=== PATIENT | female | born 1980 | race Caucasian/White ===

== ENCOUNTER 2022-02-08 15:05 | Emergency (ER) | payer MEDICAID ==
[~2022-02-08] VITALS: Ht 157.5 cm; Wt 74.6 kg
[2022-02-08 15:27] VITALS: BP 154/110
--- NOTE | 2022-02-08 15:36 | ED Back Pain ---
General Chief Complaint: Back Problems Stated Complaint: BACK PAIN History of Present Illness Date Seen by Provider: Feb 08, 2022 Time Seen by Provider: 15:35 Initial Comments 41-year-old female with PMH of chronic back issues, is here with complaints of sudden onset of pain in the lower left side of her back after she was moving boxes of [place] ornaments today and pulled a muscle. Pain is radiating down her left leg. Denies saddle anesthesia, nausea and vomiting, fall, trauma, neurological deficits, bladder or bowel dysfunction. Allergies and Home Medications Allergies Coded Allergies: morphine (Verified Allergy, Unknown, 02/08/22) terbutaline (Verified Allergy, Unknown, 02/08/22) Patient Home Medication List Home Medication List Reviewed: Yes Review of Systems Constitutional: no symptoms reported EENTM: no symptoms reported Respiratory: no symptoms reported Cardiovascular: no symptoms reported Gastrointestinal: no symptoms reported Genitourinary: no symptoms reported Musculoskeletal: back pain Skin: no symptoms reported Psychiatric/Neurological: No Symptoms Reported Physical Exam Vital Signs Vital Signs - First Documented 02/08/22 15:27 Temp 36.2 Pulse 92 Resp 18 B/P (MAP) 154/110 (125) Pulse Ox 100 O2 Delivery Room Air Capillary Refill : Height, Weight, BMI Height: '" Weight: lbs. oz. kg; BMI Method: General Appearance: Mild Distress HEENT: PERRL/EOMI Neck: Full Range of Motion, Normal Inspection, Non Tender, Supple Back: Normal Inspection, Muscle Spasm (on left side at level of L5- s1, straight leg test positive on left. No saddle anesthesia. Gait normal) Extremity: Normal Inspection, Normal Range of Motion Neurologic/Psychiatric: Alert, Oriented x3, No Motor/Sensory Deficits, Normal Mood/Affect, divorce attorney II-XII Norm as Tested Skin: Normal Color Progress/Results/Core Measures Results/Orders My Orders Orders - TATIANNA CARSON MD Thoracolumbar Spine Min 2 View (02/08/22 17:03) Ketorolac Injection (Toradol Injection) (02/08/22 17:15) Dexamethasone Injection (Decadron Inje (02/08/22 17:15) Cyclobenzaprine Tablet (Flexeril Tablet) (02/08/22 17:03) Medications Given in ED Current Medications Medications Dose Ordered Sig/Rianna Route Start Time Stop Time Status Last Admin Dose Admin Dexamethasone Sodium Phosphate 10 mg ONCE ONCE IM 02/08/22 17:15 02/08/22 17:16 DC 02/08/22 17:32 10 MG Ketorolac Tromethamine 30 mg ONCE ONCE IM 02/08/22 17:15 02/08/22 17:16 DC 02/08/22 17:32 30 MG Vital Signs/I&O 02/08/22 15:27 Temp 36.2 Pulse 92 Resp 18 B/P (MAP) 154/110 (125) Pulse Ox 100 O2 Delivery Room Air Progress Progress Note : Progress Note 1. PARASPINAL MUSCLE SPASM ( LUMBAR): - XR THORACOLUMBAR SPINE: L5-S1 degeneration - Toradol im/ Dexa 10mg im/ Flexeril oral STAT in ER. Flexeril sent home with pt since she is driving. - Prescription for Flexeril, advised not to drive after taking this medication - Advised Naproxen capsule 440mg Q12H, with Extra strength Tylenol Q4H - Gentle stretching advised/ heat compresses - Over the counter lidoderm patches advised - Follow up with PCP in 3 to 7 days - No red flags for cord compression -Flexeril prescription 3 times a day for 5 days. [address] not to drive while taking this medication -No heavy lifting -The patient was seen in the ED, and treated appropriately to presentation at a specific point in time. Patient is informed that there is a possibility that disease and illness can evolve and change in acuity rapidly or slowly after patient is discharged from the ER. Precautionary advice given to the patient for immediate return to ER if symptoms worsen or do not resolve, and to seek emergency care sooner rather than later. Pt also advised on the importance of PCP follow up and compliance with management and follow up plan with PCP and/or specialist, as this is part of the management plan. Pt verbally expressed understanding. Diagnostic Imaging Diagonstic Imaging: Xray Plain Films/CT/US/NM/MRI: other Comments [facility]. [place], [place] NAME: WINIFRED NUNN [facility] REC#: [id number] PT STATUS: REG ER : 1980 PHYSICIAN: TATIANNA CARSON MD ADMIT DATE: 02/08/22/ER FS Draft Date of Exam:02/08/22 THORACOLUMBAR SPINE MIN 2 VIEW INDICATION: Chronic back pain COMPARISON: None available. TECHNIQUE: Two radiographs of the lower thoracic and lumbar spine dated 02/08/2022. FINDINGS: No significant anterolisthesis or retrolisthesis. Mild accentuation of the kyphosis within the visualized thoracic spine. Minimal anterior wedging at the thoracolumbar junction, appearing chronic in nature. No additional vertebral body height loss. Mild disc space height loss at L5/S1. No severe disc space height loss. Minimal facet joint degenerative changes. Surgical clips in right upper abdomen. The sacroiliac joints are intact. No acute fracture or dislocation. No destructive osseous process. IMPRESSION: No acute osseous abnormality with low-grade degenerative changes, particularly at L5/S1. Accentuation of the thoracic kyphosis within the visualized thoracic spine. Dictated on workstation # [id number] Dict: 02/08/22 1721 Trans: 02/08/22 1726 [facility] [id number] Interpreted by: ARGELIA LAWRENCE MD Electronically signed by: Departure Impression Primary Impression: Lumbar paraspinal muscle spasm Disposition: 01 HOME, SELF-CARE Condition: Stable Departure-Patient Inst. Referrals: EZEKIEL MARTE APRN (PCP/Family) Primary Care Physician Patient Instructions: Muscle Spasms (DC), Using Heat for Pain, Muscle Spasm ED, MANAGING YOUR CHRONIC PAIN Add. Discharge Instructions: - Advised Naproxen capsule 440mg Q12H, with Extra strength Tylenol Q4H - Gentle stretching advised/ heat compresses - Over the counter lidoderm patches advised - Follow up with PCP in 3 to 7 days -Flexeril prescription 3 times a day for [address]. [address] to drive while taking this medication -No heavy lifting All discharge instructions reviewed with patient and/or family. Voiced understanding. Scripts Cyclobenzaprine HCl (Cyclobenzaprine HCl) 5 Mg Tablet 5 MG PO TID for 5 Days, #15 TAB Prov: TATIANNA CARSON MD 02/08/22 TATIANNA CARSON MD Feb 08, 2022 15:36
[2022-02-08] MEDS ORDERED: CYCLOBENZAPRINE 10 MG (FLEXERIL) TAB PO STA (17:03)
[2022-02-08] MEDS ORDERED: KETOROLAC 30 MG/ML VIAL IM ONE (17:15)
--- NOTE | 2022-02-08 17:26 | Diagnostic Imaging Report ---
INDICATION: Chronic back pain COMPARISON: None available. TECHNIQUE: Two radiographs of the lower thoracic and lumbar spine dated 02/08/2022. FINDINGS: No significant anterolisthesis or retrolisthesis. Mild accentuation of the kyphosis within the visualized thoracic spine. Minimal anterior wedging at the thoracolumbar junction, appearing chronic in nature. No additional vertebral body height loss. Mild disc space height loss at L5/S1. No severe disc space height loss. Minimal facet joint degenerative changes. Surgical clips in right upper abdomen. The sacroiliac joints are intact. No acute fracture or dislocation. No destructive osseous process. IMPRESSION: No acute osseous abnormality with low-grade degenerative changes, particularly at L5/S1. Accentuation of the thoracic kyphosis within the visualized thoracic spine. Dictated by: Dictated on workstation # [id number]
[2022-02-08] MEDS ORDERED: CYCL5TAB PO (17:53)
== END 2022-02-08 17:56 | disposition home or self-care (01) ==
LOC: ER FS 15:06
DX: M62.830 Muscle spasm of back (principal); Z88.5 Allergy status to narcotic agent; X50.0XXA Overexertion from strenuous movement or load, initial encounter
CPT/HCPCS: 72080